=== PATIENT | female | born 1945 | race Native Hawaiian/Other Pacific Islander ===

== ENCOUNTER 2017-08-31 10:32 | Day surgery (SDC) | payer MEDICARE, BC ==
[2017-08-31] MEDS ORDERED: PROPOFOL 10 MG/ML VIAL IV ONE (10:33)
[2017-08-31] MEDS ORDERED: MIDAZOLAM HCL 2MG/2ML VIAL IV ONE (10:33)
[2017-08-31] MEDS ORDERED: LIDOCAINE 2% MDV (20MG/ML) 20ML VIAL IV ONE (10:33)
--- NOTE | 2017-09-01 14:51 | Operative Note ---
Dictated by Dr. Tobin Mcintosh DATE OF SURGERY: 08/31/2017 OPERATION: Surveillance COLONOSCOPY with cold forceps polypectomy. PERFORMING PHYSICIAN: Arley Hough DO ASSISTING PHYSICIAN: Dr. Tobin Mcintosh PREOPERATIVE DIAGNOSIS: Colonoscopy due to recent dermatomyositis diagnosis. POSTOPERATIVE DIAGNOSIS: Two ascending colon polyps. INDICATIONS: The patient presented with a recent diagnosis of dermatomyositis. She states that she has been seen by two physicians with a second opinion at [facility] with recommendation of a generalized cancer screening including gynecological and colonoscopy evaluation. The patient has had colonoscopies in the past as well. Last noted was back in [address] Clark. PROCEDURE: Risks and benefits of the procedure as well as alternatives to colonoscopy were discussed with the patient, and patient was given appropriate time to ask questions. The patient was then consented for both the colonoscopy and anesthesia. The patient was then transported to endoscopy unit where a timeout was performed confirming the patient's name, date of , and procedure to be done. The patient was then monitored with blood pressure, ECG tracing, and pulse oximetry and then placed in the left lateral position. She was then moderately sedated with the assistance of the nurse investigator welfare here at [facility] with description of medications in the medical records but mostly mainly utilizing propofol. Once sedation was confirmed, a rectal examination was done with abnormalities identified. An Olympus 180 colonoscope was then lubricated and entered into the rectal vault. Suction of any fluid or fecal material was performed. The scope was then advanced all the way to the cecum and terminal ileum which identified no abnormalities. Retroflexion was performed in the cecum, also no abnormalities. The scope was then withdrawn for over 6-minute withdrawal time with noted 3-5 mm polyps, two of them in the ascending colon that were removed with cold biopsy forceps and sent for pathology. The scope then was continued to be withdrawn through the transverse, descending, sigmoid, and rectum with no abnormalities appreciated and fluid and fecal matter suctioned and irrigation performed for better visualization. Once in the rectum, retroflexion was performed with no abnormalities seen in the rectal vault or around the anal area. The patient tolerated the procedure well and was taken to recovery with very minimal bleeding appreciated. IMPRESSION: Two small 3-5 mm polyps removed in the ascending colon. No other abnormalities appreciated. RECOMMENDATIONS: If the polyps are adenomatous, I would recommend 5-year followup. If not and if they are hyperplastic, I would recommend 10-year followup done. Attending physician present during the entire procedure and helped assist in babin portions of the procedure. As always, thank you for allowing me to participate in the care of your patient. CC: DO VANESSA Pastrana
== END 2017-08-31 14:00 | disposition home or self-care (01) ==
LOC: HOP 10:32
PROVIDERS: ATTEND Internal Medicine Gastroenterology
DX: Z12.11 Encounter for screening for malignant neoplasm of colon (principal); D12.2 Benign neoplasm of ascending colon; M06.9 Rheumatoid arthritis, unspecified